=== PATIENT | female | born 1980 | race Caucasian/White ===

== ENCOUNTER 2018-06-23 11:39 | Outpatient (CLI) | payer MEDICAID | END 2018-06-23 11:40 | disposition critical access hospital (66) | LOC: EMS 11:39 | PROVIDERS: ATTEND Surgery | DX: O99.89 Other specified diseases and conditions complicating pregnancy, childbirth and the puerperium (principal) | CPT/HCPCS: A0425; A0429 ==

== ENCOUNTER 2018-06-23 11:54 | Inpatient (IN) | payer MEDICAID ==
[2018-06-23] MEDS ORDERED: ONDANSETRON 4 MG/2 ML VIAL IVP PRN (12:18)
[2018-06-23] MEDS ORDERED: SODIUM CHLORIDE FLUSH 0.9% 10 ML SYRINGE IVP PRN (12:18)
[2018-06-23] MEDS ORDERED: SODIUM CHLORIDE FLUSH 0.9% 10 ML SYRINGE ONE ×2 (12:23→12:30)
[2018-06-23] MEDS ORDERED: LIDOCAINE 1% 50 ML MDV ONE (12:42)
[2018-06-23] MEDS ORDERED: OXYTOCIN/SODIUM CHLORIDE 500 ML IV ONE (12:42)
[2018-06-23 12:59] LABS: BASOPHILS % (AUTO) 0.4 %; EOSINOPHILS % (AUTO) 0.3 %; HGB - HEMOGLOBIN 11.3 g/dL (12.0-16.0); LYMPHOCYTES # (AUTO) 1.9 10^3/uL (1.5-3.5); LYMPHOCYTES % (AUTO) 20.4 %; MEAN CORPUSCULAR HEMOGLOBIN 25.7 pg (27.0-31.0); MEAN CORPUSCULAR HGB CONC 33.5 g/dL (32.0-36.0); MEAN CORPUSCULAR VOLUME 76.9 fL (81.0-99.0); MEAN PLATELET VOLUME 7.5 fL (7.9-10.8); MONOCYTES # (AUTO) 0.5 10^3/uL (0.0-1.0); MONOCYTES % (AUTO) 5.3 %; NEUTROPHILS # (AUTO) 6.8 10^3/uL (1.5-6.6); NEUTROPHILS % (AUTO) 73.6 %; PLT - PLATELET COUNT 243 10^3/uL (130-450); RED BLOOD COUNT 4.41 10^6/uL (4.20-5.40); RED CELL DISTRIBUTION WIDTH 19.3 % (12.0-15.0); WHITE BLOOD COUNT 9.2 x10^3/uL (4.8-10.8)
[2018-06-23] MEDS ORDERED: LACTATED RINGERS 1,000 ML IV SCH (13:00)
--- NOTE | 2018-06-23 13:17 | PROVIDER PROGRESS NOTE ---
Labor Progress Note - Uterine Monitoring Uterine Monitoring Mode: positive: External toco Contraction Frequency (min/apart): Q2-4 Contraction Intensity: positive: Moderate to strong Uterine Resting Tone: positive: Soft - Monitoring Monitor Mode: positive: External ultrasound Heart Rate Variability: positive: Moderate (6-25 bmp) Accelerations: positive: Present, 15x15 Decelerations: positive: None - Vaginal Exam Dilation (in cm): 8 Effacement (%): 100 Station: -1 Cervical Position: Posterior - Labor Progress Note Labor Progress Note/Additional Text: H&P dictated [id number] 37 yo with a 40w3d IUP Active labor No care CPS and social work therapist consult after delivery labs including STI screening
[2018-06-23] MEDS ORDERED: OXYTOCIN/SODIUM CHLORIDE 250 ML IV ONE (14:03)
[2018-06-23] MEDS ORDERED: MAGNESIUM HYDROXIDE 2,400 MG/30 ML UDC PO PRN (14:03)
--- NOTE | 2018-06-23 14:13 | DELIVERY NOTE ---
Delivery Note - Labor Labor: positive: Spontaneous, Augmented by ARM - Infant Delivery Method Delivery Method: positive: Spontaneous vaginal delivery - Presentation Presentation: positive: Vertex - Nuchal Cord Nuchal Cord: positive: Present, Reduced (x1) - Anesthetic Anesthetic: positive: Lidocaine - 1% plain Volume: positive: 5cc - Amniotic Fluid Description Amniotic Fluid Description: positive: Clear - Episiotomy Type Episiotomy Type: positive: None - Laceration Laceration: positive: 2nd degree, Labial - Suture Suture Type: positive: Vicryl Suture Size: positive: 4-0 - Delivery Outcome Delivery Outcome: positive: Livebirth - Tutor Key: positive: Placed in direct skin contact with mother Tutor Key sex: positive: Male - Cord Cord: positive: 3 vessels - Placenta Placenta: positive: Intact - Estimated Blood Loss Estimated Blood Loss (in cc): 300 - Post Delivery Events Post Delivery Events: positive: No post delivery events - Delivery Comments (Free Text/Narrative) Delivery Comments (Free Text/Narrative): 37 yo with a 40w3d IUP presented in active labor via EMS. Patient has not had any care. She had seen us 03/11/2018 for consultation of termination of . Patient with unsure LMP of September. U/S that day established dates at 25w4d with EDC 06/20/2018. The patient did not return for care. In all her previous pregnancies that we have been involved in, the babies have been removed from her care by CPS. Edita's initial CVE by myself was 8/100/-1. Bedside U/S showed a single viable IUP with TAIWO 11 cm. EFW 6 lbs. Both intrapartum course of and maternal status were reassuring. Edita received Nitrox for pain control. Edita spontaneously delivered a viable male . gauger delivery. Tight nuchal cord x 1 reduced. The placenta delivered spontaneously, intact with 3VC. A second degree vulvar laceration was repaired with 4-0 vicryl. EBL 300 mL. No complications. workforce services representative to be consulted as well as CPS. Will check for STI's.
[2018-06-23] MEDS: ACETAMINOPHEN 325 MG TABLET PO SCH ×2 (14:36→20:38)
--- NOTE | 2018-06-23 15:48 | HISTORY & PHYSICAL EXAMINATION ---
DATE OF SERVICE: 06/23/2018 Physician: Sindi Cochran DO FACOG IDENTIFICATION: A 37-year-old G10, P7-1-1-8 with a 40-week 3-day intrauterine . EDC is 06/20/2018, established by a 25 week U/S. HISTORY OF PRESENT ILLNESS: The patient is well known to [facility]. The patient has had several pregnancies with essentially no care. The patient was last seen at our clinic on 03/11/2018 for referral for termination of . The patient had not had any care, and apparently this was her only visit throughout the entire . At that time, I did a bedside ultrasound, which revealed a single viable intrauterine with estimated gestational age of 25 weeks 4 days and the EDC of 06/20/2018. The patient had an unsure LMP in mid September. This established dates. The patient essentially did not have any care after that. This afternoon the patient has arrived via ambulance with complaints of contractions. She felt that she might have broken her bag of water at about 11: 30 this morning. She states the baby is moving well. Denies any vaginal bleeding. She is having some contractions. The patient states that the plan is to adopt the baby out. Currently she denies any nausea, vomiting, fevers or chills. PAST MEDICAL HISTORY 1. Diabetes mellitus. 2. Anxiety and depression. 3. Asthma. PAST SURGICAL HISTORY: Dilatation and curettage x2 for retained placenta. She did receive blood transfusion in the past. ALLERGIES 1. PENICILLIN, WHICH SHE HAS A RASH. 2. LATEX IN WHICH SHE HAS A RASH. MEDICATIONS: Vitamins and iron. SOCIAL HISTORY: She smokes 1-3 cigarettes per day. Denies any alcohol, marijuana, or methamphetamine use. 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 The patient is unemployed. The patient does not have custody of any of her children. PAST OBSTETRICAL HISTORY: 8 spontaneous vaginal deliveries, the biggest baby weighed 9 pounds. PAST GYNECOLOGICAL HISTORY: She states that she has been having normal Pap smears, but cannot recall the last time she had a Pap smear. She denies any sexually transmitted diseases. FAMILY HISTORY: A great grand aunt had breast cancer. REVIEW OF SYSTEMS: Negative unless otherwise stated. PHYSICAL EXAMINATION VITAL SIGNS: Stable. She is afebrile. GENERAL: The patient is a well-developed, well-nourished, female, in some distress due to her contractions. She is alert and oriented x3. HEENT: Poor dentition. She is missing multiple front teeth. CARDIOVASCULAR: Regular. No murmurs, rubs. LUNGS: Lungs are clear to auscultation bilaterally. ABDOMEN: Gravid, nontender. Bedside ultrasound revealed a single viable intrauterine . I could not get an estimated weight but the baby was measuring at 35 weeks 2 days. Amniotic fluid index was 11.4 cm. Gross EFW would be about 6 pounds. HEME: By history, the patient is A positive. LABORATORY/DATA: CBC performed today shows a white count of 9.2, H and H of 11.3 and 33.9, platelets 243. ASSESSMENT 1. A 37-year-old G10, P7-1-1-8 with a 40-week 3-day intrauterine . 2. Active labor given initial cervical examination of 8 cm dilation at 100% effacement, -1 station. 3. Reassuring heart tones with category 1 tracing, baseline in the 120s to 130s. 4. No care. PLAN 1. Admit to the hospital. 2. Pain control. Epidural per the patient's request. 3. Expect spontaneous vaginal delivery. 4. Professor Of Business as well as CPS consult after delivery. 5. We will obtain a panel screen for disease, such as HIV, hepatitis B and C. TD: 06/23/2018 13:34 ABRAHAN
[2018-06-23] MEDS ORDERED: SODIUM CHLORIDE FLUSH 0.9% 10 ML SYRINGE IVP SCH (17:00)
[2018-06-23] MEDS: CELECOXIB 100 MG CAPSULE PO SCH (18:06)
[2018-06-23] MEDS ORDERED: oxyCODONE 5 MG TABLET PO ONE (18:17)
[2018-06-23] MEDS ORDERED: HYDROcod/ACETAM 5/325 MG TABLET PO PRN (18:17)
--- NOTE | 2018-06-23 18:17 | PROVIDER PROGRESS NOTE ---
Subjective - Prog Note Date Prog Note Date: 06/23/18 Prog Note Time: 18:10 - Subjective Pt reports feeling: Worse Subjective: Patient lying in bed with the baby. Has complaints of abdominal pain. RN notes passage of two 3 inch clots. Patient on Celebrex and tylenol. Objective - Vital Signs/Intake & Output Vital Signs: Vital Signs x48h Pulse Resp BP Pulse Ox 06/23/18 16:15 111 H 18 122/75 06/23/18 16:03 102 H 18 115/87 H 06/23/18 16:01 99 18 112/69 100 06/23/18 15:45 93 18 124/79 06/23/18 15:30 86 18 108/65 06/23/18 15:05 98 18 06/23/18 15:00 103 H 18 134/78 H 100 06/23/18 14:45 97 18 109/68 06/23/18 14:30 94 18 134/77 H 06/23/18 14:15 85 18 119/76 06/23/18 14:03 97 16 109/68 100 06/23/18 14:00 109 H 18 118/72 06/23/18 13:35 92 124 H 124/76 - Lab Results Fish Bones: 06/23/18 12:18 Other Labs: Lab Results x24hrs 06/23/18 Range/Units 12:18 WBC 9.2 (4.8-10.8) x10^3/uL RBC 4.41 (4.20-5.40) 10^6/uL Hgb 11.3 L (12.0-16.0) g/dL Hct 33.9 L (37.0-47.0) % MCV 76.9 L (81.0-99.0) fL MCH 25.7 L (27.0-31.0) pg MCHC 33.5 (32.0-36.0) g/dL RDW 19.3 H (12.0-15.0) % Plt Count 243 (130-450) 10^3/uL MPV 7.5 L (7.9-10.8) fL Neut # (Auto) 6.8 H (1.5-6.6) 10^3/uL Lymph # (Auto) 1.9 (1.5-3.5) 10^3/uL [place] # (Auto) 0.5 (0.0-1.0) 10^3/uL Eos # (Auto) 0.0 (0.0-0.7) 10^3/uL Baso # (Auto) 0.0 (0.0-0.1) 10^3/uL Absolute Nucleated RBC 0.00 x10^3/uL Nucleated RBC % 0.0 /100WBC Assessment/Plan - Problem List (1) Vaginal delivery Impression: 37 yo S/p Heavier lochia Pain inadequately controlled. Will give one time dose of oxycodone and convert to vicodin. Will give cytotec for bleeding
[2018-06-23] MEDS ORDERED: miSOPROStol 200 MCG TABLET ONE (18:23)
[2018-06-23] MEDS ORDERED: miSOPROStol 100 MCG TABLET BC SCH (19:00)
--- NOTE | 2018-06-23 19:04 | PROVIDER PROGRESS NOTE ---
Subjective - Prog Note Date Prog Note Date: 06/23/18 Prog Note Time: 19:01 - Subjective Pt reports feeling: Worse (Called by RN. Patient states she's having chest pains. Difficult for her to take a breath. She has a chronic problem with her left wrist. This chest pain has been going on x 2 weeks though not to this amount of severity. No air hunger, no cough. Pain radiates to her left shoulder and down her arm. Pain in posterior left shoulder as well.) Objective - Vital Signs/Intake & Output Reviewed Vital Signs: Yes Vital Signs: Vital Signs x48h Pulse Resp BP Pulse Ox 06/23/18 18:50 92 20 112/68 100 06/23/18 16:15 111 H 18 122/75 06/23/18 16:03 102 H 18 115/87 H 06/23/18 16:01 99 18 112/69 100 06/23/18 15:45 93 18 124/79 06/23/18 15:30 86 18 108/65 06/23/18 15:05 98 18 06/23/18 15:00 103 H 18 134/78 H 100 06/23/18 14:45 97 18 109/68 06/23/18 14:30 94 18 134/77 H 06/23/18 14:15 85 18 119/76 06/23/18 14:03 97 16 109/68 100 06/23/18 14:00 109 H 18 118/72 06/23/18 13:35 92 124 H 124/76 Intake & Output: Intake & Output 06/20/18 06/21/18 06/22/18 06/23/18 23:59 23:59 23:59 23:59 Intake Total 2757.0 Balance 2757.0 - Objective General Appearance: positive: No acute distress, Anxious Eyes Bilateral: positive: Normal inspection Respiratory: positive: No respiratory distress, Breath sounds nml Cardiovascular: positive: Regular rate & rhythm, No murmur Back: positive: Nml inspection (Some areas of chronic muscle tightness on anterior and posterior shoulder. Some tenderness to palpation on areas of muscle tightness.) - Lab Results Fish Bones: 06/23/18 12:18 Other Labs: Lab Results x24hrs 06/23/18 06/23/18 Range/Units 16:45 12:18 WBC 9.2 (4.8-10.8) x10^3/uL RBC 4.41 (4.20-5.40) 10^6/uL Hgb 11.3 L (12.0-16.0) g/dL Hct 33.9 L (37.0-47.0) % MCV 76.9 L (81.0-99.0) fL MCH 25.7 L (27.0-31.0) pg MCHC 33.5 (32.0-36.0) g/dL RDW 19.3 H (12.0-15.0) % Plt Count 243 (130-450) 10^3/uL MPV 7.5 L (7.9-10.8) fL Neut # (Auto) 6.8 H (1.5-6.6) 10^3/uL Lymph # (Auto) 1.9 (1.5-3.5) 10^3/uL [place] # (Auto) 0.5 (0.0-1.0) 10^3/uL Eos # (Auto) 0.0 (0.0-0.7) 10^3/uL Baso # (Auto) 0.0 (0.0-0.1) 10^3/uL Absolute Nucleated RBC 0.00 x10^3/uL Nucleated RBC % 0.0 /100WBC Rubella IgG Antibody 20.7 IU/mL Assessment/Plan - Problem List (1) Vaginal delivery Impression: S/p 06/23/2018 Normal recovery (2) Chest pain Impression: Muscleskeletal pain Will obtain EKG to rule out electrical abnormality If EKG shows NSR, will give muscle relaxants Continue Celebrex, tylenol and PRN vicodin Qualifiers: Chest pain type: unspecified Qualified Code(s): R07.9 - Chest pain, unspecified
[2018-06-23] MEDS: DOCUSATE SODIUM 100 MG CAPSULE PO SCH (20:39)
[2018-06-23] MEDS: CYCLOBENZAPRINE 10 MG TABLET PO PRN (20:39)
[2018-06-23] MEDS ORDERED: CELECOXIB 100 MG CAPSULE PO SCH (21:00)
[2018-06-24] MEDS: ACETAMINOPHEN 325 MG TABLET PO SCH ×3 (04:29→18:25)
[2018-06-24] MEDS: CYCLOBENZAPRINE 10 MG TABLET PO PRN ×2 (04:57→18:25)
[2018-06-24] MEDS: CELECOXIB 100 MG CAPSULE PO SCH ×2 (06:15→22:52)
--- NOTE | 2018-06-24 08:42 | PROVIDER PROGRESS NOTE ---
Subjective - Prog Note Date Prog Note Date: 06/24/18 Prog Note Time: 08:40 - Subjective Pt reports feeling: Improved Subjective: Edita laying in bed. RN feeding baby (was positive for methamphetamines). Chest pain resolved. Normal lochia, urinating without difficulty. Ambulating. Denies nausea, vomiting. Unsure what she plans to do in the immediate future. Plans to adopt the baby out. Objective - Vital Signs/Intake & Output Vital Signs: Vital Signs x48h Temp Pulse Resp BP BP Pulse Ox 06/24/18 07:49 98.8 F 77 16 103/48 L 100 06/24/18 04:30 98.6 F 97 16 115/61 100 Intake & Output: Intake & Output 06/21/18 06/22/18 06/23/18 06/24/18 23:59 23:59 23:59 23:59 Intake Total 3157.0 500 Output Total 100 Balance 3057.0 500 - Objective General Appearance: positive: No acute distress Eyes Bilateral: positive: Normal inspection Abdomen: positive: Non-tender Neurologic/Psychiatric: positive: Oriented x3 - Lab Results Fish Bones: 06/23/18 12:18 Other Labs: Lab Results x24hrs 06/23/18 06/23/18 Range/Units 16:45 12:18 WBC 9.2 (4.8-10.8) x10^3/uL RBC 4.41 (4.20-5.40) 10^6/uL Hgb 11.3 L (12.0-16.0) g/dL Hct 33.9 L (37.0-47.0) % MCV 76.9 L (81.0-99.0) fL MCH 25.7 L (27.0-31.0) pg MCHC 33.5 (32.0-36.0) g/dL RDW 19.3 H (12.0-15.0) % Plt Count 243 (130-450) 10^3/uL MPV 7.5 L (7.9-10.8) fL Neut # (Auto) 6.8 H (1.5-6.6) 10^3/uL Lymph # (Auto) 1.9 (1.5-3.5) 10^3/uL [place] # (Auto) 0.5 (0.0-1.0) 10^3/uL Eos # (Auto) 0.0 (0.0-0.7) 10^3/uL Baso # (Auto) 0.0 (0.0-0.1) 10^3/uL Absolute Nucleated RBC 0.00 x10^3/uL Nucleated RBC % 0.0 /100WBC Rubella IgG Antibody 20.7 IU/mL Assessment/Plan - Problem List (1) Vaginal delivery Impression: 37 yo S/p Normal recovery Routine care Discharge to home either today or tomorrow Rx for motrin and vicodin for home care Follow up with me in 3 and 8 weeks for care. (2) Chest pain Impression: EKG NSR Likely musclesketelal in origin Spontaneously resolved yesterday Qualifiers: Chest pain type: unspecified Qualified Code(s): R07.9 - Chest pain, unspecified
[2018-06-24] MEDS: DOCUSATE SODIUM 100 MG CAPSULE PO SCH ×2 (10:03→22:53)
[2018-06-24 13:17] LABS: HEPATITIS C ANTIBODY NON-REACTIVE (NON-REACTIVE)
[2018-06-24 13:18] LABS: HEPATITIS B SURFACE ANTIGEN NON-REACTIVE (NON-REACTIVE)
[2018-06-24 13:42] LABS: HIV AG/AB 4TH GEN NON-REACTIVE (NON-REACTIVE)
--- NOTE | 2018-06-24 16:53 | PROVIDER PROGRESS NOTE ---
Subjective - Prog Note Date Prog Note Date: 06/24/18 Prog Note Time: 16:48 - Subjective Pt reports feeling: Improved Subjective: Patient in bed. Visitor at bedside feeding the baby. Verbalizes her desire to go home. Does not have a ride home. CPS has put the baby on hold. Does not know what she wants for contraception. Discharge summary dictated: [id number] Objective - Vital Signs/Intake & Output Intake & Output: Intake & Output 06/21/18 06/22/18 06/23/18 06/24/18 23:59 23:59 23:59 23:59 Intake Total 3157.0 500 Output Total 100 Balance 3057.0 500 - Lab Results Fish Bones: 06/23/18 12:18 Other Labs: Lab Results x24hrs 06/23/18 06/23/18 06/23/18 Range/Units 16:45 16:45 16:45 Hep Bs Antigen (NON-REACTIVE) Hepatitis C Antibody (NON-REACTIVE) Hep C Ab Signal/Cutoff (<1.00) HIV 1&2 Ag/Ab, 4th Gen NON-REACTIVE (NON-REACTIVE) Rubella IgG Antibody 20.7 IU/mL Ref Lab Test Result REPORT 06/23/18 06/23/18 Range/Units 16:45 16:45 Hep Bs Antigen NON-REACTIVE (NON-REACTIVE) Hepatitis C Antibody NON-REACTIVE (NON-REACTIVE) Hep C Ab Signal/Cutoff 0.00 (<1.00) HIV 1&2 Ag/Ab, 4th Gen (NON-REACTIVE) Rubella IgG Antibody IU/mL Ref Lab Test Result Assessment/Plan - Problem List (1) Vaginal delivery Impression: 37 yo S/p , PPD #1 Normal recovery Discharge to home Rx for motrin and vicodin Follow up with myself at [facility] in 3 and 8 weeks. Patient to consider what type of contraception she desires. Call for worsening fevers, chills, abdominal pain or vaginal bleeding (2) Chest pain Qualifiers: Chest pain type: unspecified Qualified Code(s): R07.9 - Chest pain, unspecified Discharge Plan Disposition: Home, Self Care Condition: Good Diet: Regular Activity Restrictions: Additional Comments (No lifting >10 lbs) Shower Restrictions: No Driving Restrictions: Yes Additional Instructions or Follow Up instructions: Call for worsening fevers, chills, abdominal pain or vaginal bleeding. Follow up in 3 and 8 weeks at [facility]. No Smoking: If you smoke, Please STOP! Call for help.
[2018-06-24 18:21] VITALS: BP 108/50
--- NOTE | 2018-06-25 04:06 | DISCHARGE SUMMARY ---
Physician: Sindi Cochran DO FACOG DATE OF ADMISSION: 06/23/2018 DATE OF DISCHARGE: 06/24/2018 DIAGNOSES ON ADMISSION 1. A 37-year-old G10, P7-1-1-8 with a 40-week 3-day intrauterine . 2. Active labor. DIAGNOSES ON DISCHARGE 1. A 37-year-old G10, 8-1-1-9 status post spontaneous vaginal delivery on 11/2017. 2. Normal recovery. BRIEF HISTORY: The patient has had no care during this . She has had several pregnancies without care and all her children are not in her custody. I saw the patient only once during this and established dates at 25 weeks gestation. The patient presented via ambulance to [facility] with complaints of contractions. On initial examination, she was 8 cm dilated. The patient spontaneously delivered a male infant with Apgars of 9 and 9 at one and five minutes, respectively and weight of 7 pounds 12 ounces. EBL was 300 mL. She sustained a second-degree vulvar laceration that was repaired with 3-0 Vicryl. There were no complications. HOSPITAL COURSE: The patient has been doing well after delivery. She did have an episode of abnormal chest pain, which I attribute to a musculoskeletal issue. She states that this pain has been going on for at least two weeks. It spontaneously resolved. She is ambulating and tolerating a regular diet. She is urinating without difficulty, and her pain is controlled with oral medications, specifically Celebrex and Tylenol. Laboratory results show she is hepatitis B surface antigen negative, hepatitis C nonreactive and HIV nonreactive. She is immune to rubella and she is negative for syphilis. We are currently pending on gonorrhea and chlamydia. The baby has been tested positive for methamphetamines. [facility] has placed a hold on the baby. Edita in the meantime would like to go home. She has an appointment to see me in three weeks at [facility] and in eight weeks as well. The patient is to decide what she would like to do for contraception. Prescription for Motrin as well as Vicodin are available for the patient. She should call should she have any worsening fevers, chills, abdominal pain or vaginal bleeding. TD: 06/24/2018 17:06 MTDKari
--- NOTE | 2018-06-27 09:22 | DISCHARGE SUMMARY ---
Physician: Sukhdev Wise MD DATE OF ADMISSION: 06/23/2018 DATE OF DISCHARGE: 06/24/2018 DIAGNOSES 1. Active labor. 2. No care. 3. Advanced maternal age. 4. History of recent methamphetamine use. 5. Diabetes mellitus. 6. Asthma. 7. Anxiety and depression. 8. Tight nuchal cord that was reduced at the time of delivery. HOSPITAL COURSE: Patient is a 37-year-old 10, para 8-1-1-9 woman with essentially no care and an estimated gestation of 40 weeks 3 days who arrived by [facility] in labor with history of ruptured membranes. Patient had a single visit, and that dating is by 25-week 4-day ultrasound. She denies fevers, chills, or symptoms consistent with preeclampsia. She has had several pregnancies with no care. At presentation, heart tracing was category I. There was suggestion of possible growth restriction on bedside ultrasound measurements. Reference Dr. Cochran's history. Initial pelvic exam revealed cervix at 8 cm, 100%, -1 station. She received nitrox for pain control and then went on to spontaneously deliver a viable male infant weighing 7 pounds 12 ounces, scoring Apgars of 9 and 9. There was a tight nuchal cord that was reduced at the time of delivery. Estimated blood loss was 300 mL. Post delivery, mother remained hemodynamically stable and recovered quickly. However, she was distant and did not miller with the child. Children[employer] Protective Services was called into consultation; and after interviewing and observing the patient, it was decided to place under their custody. Patient's pain, though, remained problematic. The patient had left shoulder pain post delivery. Toxicology screen was positive for methamphetamine in the infant. The patient was prepared for discharge to a boarder status around midnight on . She has a meeting with CPS in the morning at 9 a.m. We discussed about need for reliable contraception, and she agrees. She intends to come immediately to the clinic for Nexplanon. Discussed the advantages, disadvantages, risks, and alternatives with the patient. DISCHARGE MEDICATIONS 1. vitamins with iron. 2. Celebrex for pain. Patient will be seen in two weeks for a wound check and in eight weeks for final check. TD: 06/24/2018 22:53 [facility]
== END 2018-06-24 23:02 | disposition home or self-care (01) | DRG 774 ==
LOC: WFO 11:54 → FBP 11:55 → WFO 12:18 → FBP 12:19
PROVIDERS: ADMIT Obstetrics & Gynecology; ATTEND Obstetrics & Gynecology
PROC: 10E0XZZ Delivery of Products of Conception, External Approach (ICD-10-PCS; principal; 2018-06-23)
PROC: 0KQM0ZZ Repair Perineum Muscle, Open Approach (ICD-10-PCS; 2018-06-23)
DX: O99.324 Drug use complicating childbirth (principal); O90.89 Other complications of the puerperium, not elsewhere classified; M25.512 Pain in left shoulder; O69.1XX0 Labor and delivery complicated by cord around neck, with compression, not applicable or unspecified; O70.1 Second degree perineal laceration during delivery; O99.334 Smoking (tobacco) complicating childbirth; F17.210 Nicotine dependence, cigarettes, uncomplicated; O99.344 Other mental disorders complicating childbirth; F41.9 Anxiety disorder, unspecified; F32.9 Major depressive disorder, single episode, unspecified; Z3A.40 40 weeks gestation of pregnancy; Z86.39 Personal history of other endocrine, nutritional and metabolic disease; Z37.0 Single live birth; Z87.09 Personal history of other diseases of the respiratory system
CPT/HCPCS: 81599; 85025; 86762; 86803; 87340; 87389; 87491; 87591; 88307; 93005

== ENCOUNTER 2020-07-14 17:37 | Emergency (ER) | payer MEDICAID ==
[2020-07-14] MEDS ORDERED: HYDROmorphone 2 MG/ML VIAL IVP STA (17:43)
[2020-07-14] MEDS ORDERED: TETANUS/DIPHTHERIA/PERTUSSIS 0.5 ML SYRINGE IM ONE (17:43)
[2020-07-14] MEDS ORDERED: ceFAZolin 2 GM in SODIUM CHLORIDE 0.9% 100ML 100 ML IV STA (17:43)
[2020-07-14] MEDS ORDERED: LIDOCAINE OINTMENT 5% 35.44 GM TUBE TOP STA (17:44)
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
[2020-07-14 17:52] LABS: BASOPHILS # (AUTO) 0.1 10^3/uL (0.0-0.1); BASOPHILS % (AUTO) 0.9 %; EOSINOPHILS # (AUTO) 0.1 10^3/uL (0.0-0.7); EOSINOPHILS % (AUTO) 0.7 %; HGB - HEMOGLOBIN 14.3 g/dL (12.0-16.0); LYMPHOCYTES # (AUTO) 3.5 10^3/uL (1.5-3.5); LYMPHOCYTES % (AUTO) 36.8 %; MEAN CORPUSCULAR HEMOGLOBIN 30.2 pg (27.0-31.0); MEAN CORPUSCULAR HGB CONC 33.6 g/dL (32.0-36.0); MEAN CORPUSCULAR VOLUME 90.1 fL (81.0-99.0); MEAN PLATELET VOLUME 9.8 fL (7.9-10.8); MONOCYTES # (AUTO) 0.7 10^3/uL (0.0-1.0); MONOCYTES % (AUTO) 7.6 %; NEUTROPHILS # (AUTO) 5.1 10^3/uL (1.5-6.6); NEUTROPHILS % (AUTO) 53.6 %; PLT - PLATELET COUNT 332 10^3/uL (130-450); RED BLOOD COUNT 4.73 10^6/uL (4.20-5.40); RED CELL DISTRIBUTION WIDTH 12.7 % (12.0-15.0); WHITE BLOOD COUNT 9.6 x10^3/uL (4.8-10.8)
[2020-07-14 18:06] LABS: ALBUMIN 4.3 g/dL (3.2-5.5); ALBUMIN/GLOBULIN RATIO 1.4 (1.0-2.2); ALKALINE PHOSPHATASE 82 IU/L (42-121); ALT ALANINE AMINOTRANSFERASE 24 IU/L (10-60); AST ASPARTATE AMINOTRANSFERASE 26 IU/L (10-42); BUN - BLOOD UREA NITROGEN 17 mg/dL (6-20); CALCIUM 9.3 mg/dL (8.5-10.3); CARBON DIOXIDE - CO2 17 mmol/L (21-32); CHLORIDE 105 mmol/L (101-111); CREATININE 0.8 mg/dL (0.4-1.0); GLUCOSE 135 mg/dL (70-100); LIPASE 24 U/L (22-51); SODIUM 136 mmol/L (135-145); TOTAL PROTEIN 7.4 g/dL (6.7-8.2)
[2020-07-14] MEDS ORDERED: HYDROmorphone 1 MG/ML CARPUJECT IVP STA ×3 (18:34→19:53)
--- NOTE | 2020-07-14 18:47 | XRAY Report ---
PROCEDURE: Forearm LT INDICATIONS: arm inj TECHNIQUE: 2 views of the forearm were acquired. COMPARISON: None available FINDINGS: Bones: No fractures or dislocations. No suspicious bony lesions. Soft tissues: No suspicious soft tissue calcifications or masses. There is a soft tissue defect ove r the dorsum of the proximal forearm with debris in the soft tissues. IMPRESSION: 1. Soft tissue injury of the dorsal proximal forearm without underlying fracture. Reviewed by: Alicia Posey MD on 07/14/2020 6:45 PM PDT Approved by: Alicia Posey MD on 07/14/2020 6:45 PM PDT Station ID: [id number]
--- NOTE | 2020-07-14 18:50 | XRAY Report ---
PROCEDURE: Ankle 3 View LT INDICATIONS: leg / foot inj TECHNIQUE: 3 views of the ankle were acquired. COMPARISON: None available FINDINGS: Bones: No ankle fractures or dislocations. Partially imaged fracture dislocation of the midfoot. Thi s will be detailed on a separate report. There is a prominent plantar calcaneal spur. Ankle mortise i s normally aligned. No suspicious bony lesions. Soft tissues: No tibiotalar joint effusion. Achilles tendon appears normal. IMPRESSION: 1. Intact ankle. 2. Partially imaged midfoot fracture dislocation will be detailed separately. Reviewed by: Alicia Posey MD on 07/14/2020 6:48 PM PDT Approved by: Alicia Posey MD on 07/14/2020 6:48 PM PDT Station ID: [id number]
--- NOTE | 2020-07-14 18:54 | XRAY Report ---
PROCEDURE: Foot 3 View LT INDICATIONS: leg / foot inj TECHNIQUE: 3 views of the foot were acquired. COMPARISON: None available FINDINGS: Bones: There is tarsometatarsal dislocation with dorsal displacement of metatarsals and divergence of the first and second metatarsal indicating Lisfranc ligament injury. There is a comminuted fracture involving the cuboid bone. There are probable impaction fractures of the cuneiforms although these ar e less well seen due to overlapping structures. No suspicious bony lesions. Soft tissues: No tibiotalar joint effusion. Achilles tendon appears normal. IMPRESSION: 1. Tarsometatarsal Lisfranc fracture dislocation. 2. CT is recommended for better depiction of fractures. Reviewed by: Alicia Posey MD on 07/14/2020 6:53 PM PDT Approved by: Alicia Posey MD on 07/14/2020 6:53 PM PDT Station ID: [id number]
--- NOTE | 2020-07-14 18:55 | XRAY Report ---
PROCEDURE: Tib/Fib LT INDICATIONS: leg / foot inj TECHNIQUE: 2 views of the tibia and fibula were acquired. COMPARISON: None available FINDINGS: Bones: No fractures or dislocations. No suspicious bony lesions. Soft tissues: No suspicious soft tissue calcifications or masses. IMPRESSION: Intact left tibia and fibula. Reviewed by: Alicia Posey MD on 07/14/2020 6:54 PM PDT Approved by: Alicia Posey MD on 07/14/2020 6:54 PM PDT Station ID: [id number]
--- NOTE | 2020-07-14 18:57 | XRAY Report ---
PROCEDURE: Cervical Spine Complete INDICATIONS: fall poss distracting inj TECHNIQUE: 5 view(s) of the cervical spine were acquired. COMPARISON: None. FINDINGS: Bones: No fractures or dislocations to the C7 level. C7-T1 relationship is not well seen. The later al masses of C1 appear intact on the odontoid view. No suspicious bony lesions. There is straighten ing of the normal cervical lordosis. Soft tissues: No prevertebral soft tissue swelling. IMPRESSION: No radiographic evidence of acute cervical spine trauma. Straightening of the cervical spine may be secondary to spasm or posture. Reviewed by: Alicia Posey MD on 07/14/2020 6:56 PM PDT Approved by: Alicia Posey MD on 07/14/2020 6:56 PM PDT Station ID: [id number]
[2020-07-14 19:15] VITALS: BP 155/84
[2020-07-14] MEDS ORDERED: LORazepam 2 MG/ML VIAL IVP STA (19:53)
== END 2020-07-14 20:00 | disposition short-term general hospital (02) ==
LOC: ED 17:37
DX: S93.325A Dislocation of tarsometatarsal joint of left foot, initial encounter (principal); S92.212A Displaced fracture of cuboid bone of left foot, initial encounter for closed fracture; S50.812A Abrasion of left forearm, initial encounter; S60.512A Abrasion of left hand, initial encounter; S60.511A Abrasion of right hand, initial encounter; S80.812A Abrasion, left lower leg, initial encounter; S80.811A Abrasion, right lower leg, initial encounter; V18.4XXA Pedal cycle driver injured in noncollision transport accident in traffic accident, initial encounter; Y93.55 Activity, bike riding; Y92.828 Other wilderness area as the place of occurrence of the external cause; F17.200 Nicotine dependence, unspecified, uncomplicated
CPT/HCPCS: 36415; 72050; 73090; 73590; 73610; 73630; 80053; 80320; 83690; 85025; 90471; 90715; 96365; 96375; 96376; 99283; 99285; A9270; J1170; J2060

== ENCOUNTER 2020-07-14 20:09 | Outpatient (CLI) | payer MEDICAID | END 2020-07-14 20:10 | disposition short-term general hospital (02) | LOC: EMS 20:09 | PROVIDERS: ATTEND Surgery | DX: S09.90XA Unspecified injury of head, initial encounter (principal); S82.892A Other fracture of left lower leg, initial encounter for closed fracture; V19.9XXA Pedal cyclist (driver) (passenger) injured in unspecified traffic accident, initial encounter | CPT/HCPCS: A0425; A0426 ==

== ENCOUNTER 2021-04-29 10:01 | Outpatient (CLI) | payer OTHER, MEDICAID ==
--- NOTE | 2021-04-29 11:12 | XRAY Report ---
PROCEDURE: Elbow 3 View LT INDICATIONS: LT ELBOW PAIN TECHNIQUE: 3 views of the elbow were acquired. COMPARISON: None FINDINGS: Bones: No fractures or dislocations. No suspicious bony lesions. Soft tissues: No elbow joint effusion. No suspicious soft tissue calcifications. IMPRESSION: No acute fracture. No osseous lesion. If symptoms and/or clinical suspicion for pathology continue, f urther assessment with repeat plain films, or advanced imaging (e.g., CT, MRI, or bone scan) is recom mended for further assessment. Reviewed by: Jeannie Berry MD on 04/29/2021 11:10 AM PDT Approved by: Jeannie Berry MD on 04/29/2021 11:10 AM PDT Station ID: [id number]
--- NOTE | 2021-04-29 11:13 | XRAY Report ---
PROCEDURE: Foot 3 View LT INDICATIONS: LT FOOT PAIN,LEFT ELBOW PAIN TECHNIQUE: 3 views of the foot were acquired. COMPARISON: Plain films dated 07/14/2020 FINDINGS: Bones: No acute fractures or dislocations. Small bony fragment adjacent to the proximal second meta tarsal. Mild lateral subluxation of the second metatarsal. No suspicious bony lesions. Mild periarti cular osteophyte formation at the first metatarsophalangeal joint as well as the interphalangeal join ts of the digits. Calcaneal spurring. Periarticular osteophyte formation at the second and third tars ometatarsal joints. Soft tissues: No tibiotalar joint effusion. Achilles tendon appears normal. IMPRESSION: 1. Sequelae of remote Lisfranc fracture. 2. 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 Reviewed by: Jeannie Berry MD on 04/29/2021 11:12 AM PDT Approved by: Jeannie Berry MD on 04/29/2021 11:12 AM PDT Station ID: [id number]
== END 2021-04-29 10:02 | disposition home or self-care (01) ==
LOC: DI 10:01
DX: M25.522 Pain in left elbow (principal); M25.572 Pain in left ankle and joints of left foot; M19.072 Primary osteoarthritis, left ankle and foot

== ENCOUNTER 2022-01-14 15:57 | Outpatient (CLI) | payer MEDICAID, OTHER ==
--- NOTE | 2022-01-16 06:45 | Mammography Report ---
BILATERAL DIGITAL SCREENING MAMMOGRAM 3D/2D: 01/14/2022 CLINICAL: Baseline exam. Routine screening. No prior exams were available for comparison. The tissue of both breasts is predominantly fatty. No significant masses, calcifications, or other findings are seen in either breast. IMPRESSION: NEGATIVE There is no mammographic evidence of malignancy. A 1 year screening mammogram is recommended. This exam was interpreted at Station ID: [id number]. NOTE: For mammograms, a report in lay terms will be sent to the patient. Approximately 15% of breast malignancies will not be visualized mammographically. In the management of a palpable breast mass, a negative mammogram must not discourage biopsy of a clinically suspicious lesion. Electronically Signed By: Rick warren/jose:01/15/2022 08:37:14 ACR BI-RADS Category 1: Negative 3341F PARENCHYMAL PATTERN: (F) - The breast(s) demonstrate(s) diffuse fatty replacement. BI-RADS CATEGORY: (1) - 1 RECOMMENDATION: (ANNUAL) - Recommend routine annual screening mammography. [id number] 1 year screening LATERALITY: (B)
== END 2022-01-14 15:58 | disposition home or self-care (01) ==
LOC: DI.N 15:57
PROVIDERS: ATTEND Nurse Practitioner Obstetrics & Gynecology
DX: Z12.31 Encounter for screening mammogram for malignant neoplasm of breast (principal)